=== PATIENT | female | born 1965 | race Caucasian/White ===

== ENCOUNTER 2025-02-01 10:14 | Outpatient (CLI) | payer OTHER ==
[2025-02-01 11:32] LABS: INR 1.04; PARTIAL THROMBOPLASTIN TIME 25.8 SECONDS (22.0-34.0); PROTHROMBIN TIME 11.3 SECONDS (9.0-11.5)
[2025-02-01 12:28] LABS: BILIRUBIN TOTAL 0.6 mg/dL (0.3-1.2); CALCIUM 8.9 mg/dL (8.5-10.1); CREATININE SERUM 0.74 mg/dL (0.55-1.02); GFR 79.78; GLOBULINA 3.3 G/DL (2.4-3.5); POTASSIUM 4.66 mEq/L (3.5-5.1); TOTAL PROTEIN 7.3 gm/dL (6.4-8.2)
[2025-02-01 15:26] LABS: EOS # 0.12 (0.04-0.54); EOS % 2.3 % (0.7-7.0); HEMATOCRIT 43.7 % (34.1-44.9); HEMOGLOBIN 14.1 g/dL (11.2-15.7); LYMPH # 1.11 (1.18-3.74); LYMPH % 21.7 % (19.3-53.1); MEAN CORPUSCULAR HEMOGLOBIN 29.6 pg (25.6-32.2); MONO # 0.42 (0.24-0.82); MONO % 8.2 % (4.7-12.5); NEUT % 66.6 % (34.0-71.1); PLATELET COUNT 186 K/uL (163-369); RED BLOOD COUNT 4.77 M/uL (3.93-5.22); RED CELL DISTRIBUTION WIDTH 14.1 % (11.6-14.4)
== END 2025-02-01 10:26 | disposition home or self-care (01) ==
LOC: RAD 10:14
PROVIDERS: ATTEND Obstetrics & Gynecology
DX: N91.1 Secondary amenorrhea (principal); R05.9 Cough, unspecified; R07.9 Chest pain, unspecified

== ENCOUNTER 2025-02-10 06:33 | Day surgery (SDC) | payer OTHER ==
[~2025-02-10 06:33] MED LIST: CLONAZEPAN
[2025-02-10] MEDS ORDERED: PROMETHAZINE HCL 50 MG/ML AMPUL IM ONE (11:15)
[2025-02-10] MEDS ORDERED: MORPHINE SULFATE 4 MG/ML VIAL IV PRN (11:15)
== END 2025-02-10 15:05 | disposition home or self-care (01) ==
LOC: CIR.AMB 06:33
PROVIDERS: ATTEND Obstetrics & Gynecology
DX: N84.0 Polyp of corpus uteri (principal)